=== PATIENT | female | born 1980 | race Caucasian/White ===

== ENCOUNTER → 2019-11-02 15:38 | Outpatient (CLI) | payer MEDICARE, MEDICAID, SELFPAY ==
--- NOTE | ~2019-11-02 | XR_ITS ---
XR lumbar spine 6V w bending 11/02/2019 17:24 Indication: Back pain Procedure: 7 views of the lumbar spine Comparison: No prior studies for comparison. Findings: There is facet hypertrophy at L5-S1 and to a lesser degree L4-5. There is grade 1 degenerat estuardo spondylolisthesis at L5-S1. Vertebral body and disc heights are preserved. No fracture, subluxati on or dislocation. There is mild levocurvature of the lumbar spine centered at L3. Pedicles intact. S acral foramen are symmetric. There is a ventriculoperitoneal catheter. There are cholecystectomy clip s. Impression: 1: Mild lumbar spondylosis primarily at L5-S1. Reviewed, dictated and finalized at location A. BURSEMENT COORDINATOR Impression: 1: Mild lumbar spondylosis primarily at L5-S1.
--- NOTE | ~2019-11-02 | XR_ITS ---
XR shoulder RT min 2V, XR shoulder LT min 2V 11/02/2019 17:24 Indication: Bilateral shoulder pain Procedure: 5 views of each shoulder Comparison: No prior studies for comparison. Findings: No fracture, subluxation or dislocation. There is anatomic alignment of both shoulders. William rounding osseous structures within normal limits. There is a left-sided ventriculoperitoneal shunt. Impression: 1: No significant bone or joint abnormality. Reviewed, dictated and finalized at location A. [employer] Impression: 1: No significant bone or joint abnormality. Impression: 1: No significant bone or joint abnormality.
--- NOTE | ~2019-11-02 | XR_ITS ---
XR cervical spine min 6V 11/02/2019 17:24 Indication: Cervicalgia Procedure: 5 views of the cervical spine Comparison: No prior studies for comparison. Findings: Vertebral body heights and disc spaces are preserved. Normal cervical lordosis. No preverte bral soft tissue swelling. Lung apices are unremarkable. There are catheters overlying the neck bilat erally. Impression: 1: No significant abnormality of the cervical spine. Reviewed, dictated and finalized at location A. DLE CARVER Impression: 1: No significant abnormality of the cervical spine.
== END ==
PROVIDERS: PCP Family Medicine; Visit Provider Nurse Practitioner Family
DX: M54.2 Cervicalgia (principal); M54.5 Low back pain; M25.512 Pain in left shoulder; M25.511 Pain in right shoulder; M47.897 Other spondylosis, lumbosacral region
CPT/HCPCS: 72052; 72114; 73030